=== PATIENT | male | born 1995 | race African-American/Black ===

== ENCOUNTER → 2022-12-27 | Outpatient (CLI) | payer OTHER | LOC: M PLAIMG 15:12 | PROVIDERS: ATTEND Physician Assistant | DX: G44.89 Other headache syndrome (principal); H53.10 Unspecified subjective visual disturbances ==

== ENCOUNTER → 2023-02-01 | Outpatient (REF) | LOC: M PLAIMG 09:42 | PROVIDERS: ATTEND Internal Medicine | DX: R06.02 Shortness of breath (principal) ==

== ENCOUNTER 2023-04-02 11:52 | Emergency (ER) | payer OTHER ==
[~2023-04-02] VITALS: Ht 185.4 cm; Wt 68.2 kg
[2023-04-02] MEDS ORDERED: NS 1,000 ML IV ONE (12:05)
[2023-04-02] MEDS ORDERED: IBUPROFEN 600MG TAB PO ONE (12:05)
[2023-04-02 12:49] LABS: BASO % 0.2 % (0.0-1.0); LYMPH # 0.4 10^3/uL (1.5-5.0); LYMPH % 7.9 % (24.0-44.0); MEAN CORPUSCULAR HEMOGLOBIN 27.5 pg (27.0-33.0); MEAN CORPUSCULAR HGB CONC 33.3 g/dl (32.0-36.5); MEAN CORPUSCULAR VOLUME 82.4 fl (80.0-96.0); MONO # 0.4 10^3/uL (0.0-0.8); MONO % 7.9 % (2.0-8.0); NEUTROPHILS # 3.7 10^3/uL (1.5-8.5); NEUTROPHILS % 83.8 % (36.0-66.0); PLATELET COUNT, AUTOMATED 141 10^3/uL (150-450); RED BLOOD COUNT 5.46 10^6/uL (4.30-6.10); WHITE BLOOD COUNT 4.4 10^3/uL (4.0-10.0)
[2023-04-02 13:13] LABS: ALBUMIN 3.5 G/DL (3.2-5.2); ALKALINE PHOSPHATASE 68 U/L (46-116); ALT/SGPT 28 U/L (7.0-40); AST/SGOT 29 U/L (<34); BILIRUBIN,DIRECT 0.4 MG/DL (<0.4); BLOOD UREA NITROGEN 11 MG/DL (9-23); CALCIUM LEVEL 8.7 MG/DL (8.5-10.1); CARBON DIOXIDE LEVEL 26 MMOL/L (20-31); CHLORIDE LEVEL 104 MMOL/L (98-107); CREATININE FOR GFR 1.22 MG/DL (0.70-1.30); GLOMERULAR FILTRATION RATE > 60.0 (>60); GLUCOSE, FASTING 86 MG/DL (60-100); POTASSIUM SERUM 3.9 MMOL/L (3.5-5.1); SODIUM LEVEL 136 MMOL/L (136-145); TOTAL PROTEIN 6.8 G/DL (5.7-8.2)
[2023-04-02 15:01] VITALS: BP 100/50
[2023-04-02] MEDS ORDERED: MALA250T PO (15:04)
[2023-04-02] MEDS ORDERED: MALARONE 250/100MG (ATOVAQUONE/PROGUANIL) TABLET PO SCH (18:00)
== END 2023-04-02 15:22 | disposition home or self-care (01) ==
LOC: EDBD 11:52 → M ED 11:52
DX: B50.9 Plasmodium falciparum malaria, unspecified (principal); Z79.899 Other long term (current) drug therapy

== ENCOUNTER → 2023-07-17 | Outpatient (CLI) | payer OTHER ==
[~2023-07-17] MED LIST: MALA250T PO
== END ==
LOC: M RAD 07:36
PROVIDERS: ATTEND Physician Assistant
DX: S83.511A Sprain of anterior cruciate ligament of right knee, initial encounter (principal); M25.561 Pain in right knee; Y93.9 Activity, unspecified; Y92.9 Unspecified place or not applicable

== ENCOUNTER 2023-10-03 23:22 | Emergency (ER) | payer OTHER ==
[~2023-10-03] VITALS: Ht 185.4 cm; Wt 65.9 kg
[2023-10-04 00:08] LABS: BASO % 0.6 % (0.0-1.0); EOS # 0.3 10^3/uL (0.0-0.5); HEMATOCRIT 43.2 % (42.0-52.0); HEMOGLOBIN 14.7 g/dl (13.5-17.5); LYMPH # 1.8 10^3/uL (1.5-5.0); LYMPH % 36.3 % (24.0-44.0); MEAN CORPUSCULAR HEMOGLOBIN 27.7 pg (27.0-33.0); MEAN CORPUSCULAR VOLUME 81.5 fl (80.0-96.0); MONO # 0.6 10^3/uL (0.0-0.8); MONO % 11.2 % (2.0-8.0); NEUTROPHILS # 2.3 10^3/uL (1.5-8.5); NEUTROPHILS % 45.3 % (36.0-66.0); PLATELET COUNT, AUTOMATED 180 10^3/uL (150-450)
[2023-10-04 00:41] LABS: LIPASE 34 U/L (12-53)
[2023-10-04 00:43] LABS: ALBUMIN 3.6 G/DL (3.2-5.2); ALKALINE PHOSPHATASE 71 U/L (46-116); ALT/SGPT 21 U/L (7.0-40); AST/SGOT 21 U/L (<34); BILIRUBIN,DIRECT 0.2 MG/DL (<0.4); BILIRUBIN,TOTAL 0.6 MG/DL (0.3-1.2); BLOOD UREA NITROGEN 13 MG/DL (9-23); CALCIUM LEVEL 8.8 MG/DL (8.5-10.1); CARBON DIOXIDE LEVEL 26 MMOL/L (20-31); CHLORIDE LEVEL 104 MMOL/L (98-107); CREATININE FOR GFR 1.09 MG/DL (0.70-1.30); GLOMERULAR FILTRATION RATE > 60.0 (>60); GLUCOSE, FASTING 108 MG/DL (60-100); POTASSIUM SERUM 4.3 MMOL/L (3.5-5.1); SODIUM LEVEL 138 MMOL/L (136-145); TOTAL PROTEIN 7.2 G/DL (5.7-8.2)
[2023-10-04] MEDS ORDERED: GASTROGRAFIN SOLUTION 30ML As Ordered ONE (01:00)
[2023-10-04] MEDS ORDERED: KETOROLAC 30 MG/ML 1ML VIAL IV ONE (01:00)
[2023-10-04] MEDS: GASTROGRAFIN SOLUTION 30ML PO SCH ×2 (01:15→01:45)
[2023-10-04] MEDS ORDERED: ISOVUE-370 76% 100ML VIAL As Ordered ONE (01:52)
[2023-10-04 05:45] VITALS: BP 94/54; TEMP 98.2; O2SAT 100
== END 2023-10-04 06:30 | disposition home or self-care (01) ==
LOC: M ED 23:22
DX: R10.9 Unspecified abdominal pain (principal); R19.7 Diarrhea, unspecified; F10.10 Alcohol abuse, uncomplicated; Z79.899 Other long term (current) drug therapy
CPT/HCPCS: 74177; 80048; 80076; 81001; 83605; 83690; 85025; 93041; 96374; 99285; J1885; Q9967